=== PATIENT | female | born 1960 | race Caucasian/White ===

== ENCOUNTER 2016-07-24 19:04 | Emergency (ER) | payer BC ==
[~2016-07-24] VITALS: Ht 162.6 cm; Wt 61.5 kg
[2016-07-24] MEDS ORDERED: METOCLOPRAMIDE HCL 10 MG/2 ML VIAL IV PUSH ONE (19:15)
[2016-07-24] MEDS ORDERED: SODIUM CHLORIDE 0.9% FLUSH 10 ML FLUSH IVF PRN (19:15)
[2016-07-24] MEDS: SODIUM CHLOR 0.9% 1000 ML INJ 1,000 ML IV SCH ×2 (19:19→21:25)
[2016-07-24] MEDS ORDERED: MECLIZINE HCL 25 MG TAB PO ONE (19:30)
[2016-07-24] MEDS ORDERED: SODIUM CHLORID 0.9% 500 ML INJ 500 ML IV ONE ×2 (19:30→23:00)
[2016-07-24 19:35] VITALS: BP 94/49; PULSE 88; RESP 20; TEMP 98.5; O2SAT 97
[2016-07-24] MEDS ORDERED: LORazepam 2 MG/ML VIAL IV PUSH ONE (19:45)
[2016-07-24] MEDS ORDERED: SODIUM CHLOR 0.9% 1000 ML INJ 1,000 ML IV ONE (19:45)
[2016-07-24 20:04] LABS: AUTOMATED NEUTROPHIL # 3.9 TH/MM3 (1.8-7.7); BASOPHIL % 0.5 % (0.0-2.0); EOSINOPHIL % 0.7 % (0.0-4.0); HEMATOCRIT 38.4 % (35.0-46.0); HEMO FLAGS DIFF FINAL; LYMPH % 28.3 % (9.0-44.0); LYMPHOCYTE # 1.7 TH/MM3 (1.0-4.8); MEAN CELL VOLUME 91.2 FL (80.0-100.0); MEAN CORPUSCULAR HEMOGLOBIN 30.6 PG (27.0-34.0); MEAN CORPUSCULAR HGB CONC 33.5 % (32.0-36.0); MONO % 6.7 % (0.0-8.0); NEUT % 63.8 % (16.0-70.0); PLATELET COUNT 199 TH/MM3 (150-450); RED BLOOD COUNT 4.21 MIL/MM3 (4.00-5.30); RED CELL DISTRIBUTION WIDTH 12.6 % (11.6-17.2)
[2016-07-24 20:05] VITALS: BP 91/46; PULSE 75; RESP 18
--- NOTE | 2016-07-24 20:06 | RADHPO ---
EXAM DATE/TIME: 07/24/2016 19:49 [facility] COMPARISON: No previous studies available for comparison. INDICATIONS : Dizziness and weakness. MEDICAL HISTORY : None. SURGICAL HISTORY : None. ENCOUNTER: Initial ACUITY: 1 day PAIN SCORE: 0/10 LOCATION: Bilateral chest FINDINGS: A single view of the chest demonstrates the lungs to be symmetrically aerated without evidence of mas s, infiltrate or effusion. The cardiomediastinal contours are unremarkable. Osseous structures are intact. CONCLUSION: The lungs are clear. Donovan Joe MD on July 24, 2016 at 20:04 Board Certified Radiologist. This report was verified electronically.
--- NOTE | 2016-07-24 20:07 | PD ---
HPI Chief Complaint: GI Complaint Time Seen by Provider: 19:24 Travel History International Travel<30 days: No Contact w/Intl Traveler<30days: No Traveled to known affect area: No History of Present Illness HPI 56-year-old female presents to the emergency department from her residence by EMS transport for severe dizziness with nausea and vomiting. Patient states that she cannot lay back because of dizziness worsens. No prior history of episodes of dizziness or vertigo. Patient takes no medications on a daily basis has no chronic medical conditions was feeling well this afternoon awakened from a nap around 5:30 states she felt fine at that time all taking a shower and thereafter started developing some dizziness and thought that she was becoming overheated but as she tried to lay down in her bed her dizziness worsened and she had to sit up to prevent the dizziness from accelerating and developed vomiting. No loss of vision no double vision no headache no difficulty with speech no confusion no upper or lower extremity numbness tingling or weakness. states that her dizziness was too severe for him to bring her to the hospital so called 911 to transport her here. Patient did have an alcoholic beverage at lunch time but otherwise patient consumes same foods as her who feels well and no recent foreign travel or well water ingestion. Patient has received 2 doses of Zofran 4 mg each IV en route to the hospital as well as was noted to have normal blood sugar 113 reportedly she was normotensive. Patient reports that she has low blood pressure by history. No report of chest pain shortness of breath no neck jaw back shoulder arm pain and no abdominal pain. reports that only her dizziness and vomiting have been her symptoms no report of confusion facial droop unilateral weakness and patient denies the above as well as no weakness and no paresthesias. No seizure activity and no incontinence. No recent febrile illness. PFSH Past Medical History Narrative Medical negative pmh (chronic low blood pressure 90-100 mmHG), negative psh per patient and spouse; rare alcohol no tobacco; nursing notes reviewed Social History Tobacco Use: No Allergies-Medications (Allergen,Severity, Reaction): Coded Allergies: No Known Allergies (Unverified , 07/24/16) Reported Meds & Prescriptions Reported Meds & Active Scripts Active No Active Prescriptions or Reported Medications Narrative Medication none Review of Systems Except as stated in HPI: all other systems reviewed are Neg General / Constitutional: No: Fever Eyes: No: Diploplia, Blurred Vision, Photophobia HENT: Positive: Vertigo, Lightheadedness, No: Headaches Cardiovascular: No: Chest Pain or Discomfort Respiratory: No: Shortness of Breath Gastrointestinal: Positive: Nausea, Vomiting, No: Abdominal Pain Genitourinary: No: Flank Pain Musculoskeletal: No: Pain Skin: No Rash Neurologic: Positive: Dizziness, No: Weakness, Syncope, Focal Abnormalities, Coordination Problem, Headache, Change in Mentation, Slurred Speech, Paresthesia , Incontinence, Seizures Psychiatric: No: Anxiety Endocrine: No: Heat Intolerance Hematologic/Lymphatic: No: Easy Bruising Physical Exam Narrative GENERAL: Well-developed well-nourished female in no respiratory distress in obvious discomfort with active vomiting SKIN: Warm and dry. HEAD: Atraumatic. Normocephalic. EYES: Pupils equal and round. Extraocular muscles intact. No scleral icterus. No injection or drainage. ENT: No nasal bleeding or discharge. Mucous membranes pink and moist. NECK: Trachea midline. No JVD. Supple. CARDIOVASCULAR: Regular rate and rhythm. RESPIRATORY: No accessory muscle use. Clear to auscultation. Breath sounds equal bilaterally. GASTROINTESTINAL: Abdomen soft, non-tender, nondistended. Hepatic and splenic margins not palpable. MUSCULOSKELETAL: Extremities without clubbing, cyanosis, or edema. No obvious deformities. NEUROLOGICAL: Awake and alert. GCS 15. No obvious cranial nerve deficits, rightward nystagmus. Motor grossly within normal limits. Five out of 5 muscle strength in the arms and legs. No pronator drift. No limb ataxia. Sensory exam intact. DTRs 2+ and equal. Normal speech. PSYCHIATRIC: Appropriate mood and affect; insight and judgment normal. Data Data Last Documented VS Vital Signs Date Time Temp Pulse Resp B/P Pulse Ox O2 Delivery O2 Flow Rate FiO2 07/24/16 23:20 70 18 97/50 97 Room Air 07/24/16 19:35 98.5 Orders Electrocardiogram (07/24/16 19:12) Prothrombin Time / Inr (Pt) (07/24/16 19:12) Act Partial Throm Time (Ptt) (07/24/16 19:12) Complete Blood Count With Diff (07/24/16 19:12) Basic Metabolic Panel (Bmp) (07/24/16 19:12) Troponin I (07/24/16 19:12) Ct Brain W/O Iv Contrast(Rout) (07/24/16 19:12) Chest, Single Ap (07/24/16 19:12) Ecg Monitoring (07/24/16 19:12) Iv Access Insert/Monitor (07/24/16 19:12) Oximetry (07/24/16 19:12) Sodium Chloride 0.9% Flush (Ns Flush) (07/24/16 19:15) Metoclopramide Inj (Reglan Inj) (07/24/16 19:15) Sodium Chlor 0.9% 1000 Ml Inj (Ns 1000 M (07/24/16 19:15) Alcohol (Ethanol) (07/24/16 19:12) Magnesium (Mg) (07/24/16 19:12) Urinalysis - C+S If Indicated (07/24/16 19:13) Meclizine (Antivert) (07/24/16 19:30) Sodium Chlorid 0.9% 500 Ml Inj (Ns 500 M (07/24/16 19:30) Lorazepam Inj (Ativan Inj) (07/24/16 19:45) Sodium Chlor 0.9% 1000 Ml Inj (Ns 1000 M (07/24/16 19:45) Urine Culture (07/24/16 21:30) Sodium Chlorid 0.9% 500 Ml Inj (Ns 500 M (07/24/16 23:00) Nitrofurantoin Monohyd Macrocr (Macrobid (07/24/16 23:00) Labs Laboratory Tests Test 07/24/16 07/24/16 07/24/16 19:10 20:30 21:30 White Blood Count 6.0 TH/MM3 Red Blood Count 4.21 MIL/MM3 Hemoglobin 12.9 GM/DL Hematocrit 38.4 % Mean Corpuscular Volume 91.2 FL Mean Corpuscular Hemoglobin 30.6 PG Mean Corpuscular Hemoglobin 33.5 % Concent Red Cell Distribution Width 12.6 % Platelet Count 199 TH/MM3 Mean Platelet Volume 8.2 FL Neutrophils (%) (Auto) 63.8 % Lymphocytes (%) (Auto) 28.3 % Monocytes (%) (Auto) 6.7 % Eosinophils (%) (Auto) 0.7 % Basophils (%) (Auto) 0.5 % Neutrophils # (Auto) 3.9 TH/MM3 Lymphocytes # (Auto) 1.7 TH/MM3 Monocytes # (Auto) 0.4 TH/MM3 Eosinophils # (Auto) 0.0 TH/MM3 Basophils # (Auto) 0.0 TH/MM3 CBC Comment DIFF FINAL Differential Comment Sodium Level 144 MEQ/L Potassium Level 3.8 MEQ/L Chloride Level 110 MEQ/L Carbon Dioxide Level 23.6 MEQ/L Anion Gap 10 MEQ/L Blood Urea Nitrogen 19 MG/DL Creatinine 0.68 MG/DL Estimat Glomerular Filtration 89 ML/MIN Rate Random Glucose 113 MG/DL Calcium Level 8.4 MG/DL Magnesium Level 2.0 MG/DL Troponin I LESS THAN 0.02 NG/ML Ethyl Alcohol Level LESS THAN 3 MG/DL Prothrombin Time 11.4 SEC Prothromb Time International 1.0 RATIO Ratio Activated Partial 25.2 SEC Thromboplast Time Urine Collection Type CLEAN CATCH Urine Color YELLOW Urine Turbidity CLEAR Urine pH 8.0 Urine Specific [place] 1.019 Urine Protein TRACE mg/dL Urine Glucose (UA) NEG mg/dL Urine Ketones TRACE mg/dL Urine Occult Blood NEG Urine Nitrite NEG Urine Bilirubin NEG Urine Leukocyte Esterase TRACE Urine RBC 0-3 /hpf Urine WBC 9-14 /hpf Urine Squamous Epithelial 0-5 /hpf Cells Urine Amorphous Sediment SMALL Urine Mucus FEW /lpf Microscopic Urinalysis Comment CULTURE INDICATED MDM Medical Decision Making Medical Screen Exam Complete: Yes Emergency Medical Condition: Yes Medical Record Reviewed: Yes Interpretation(s) Vital Signs Date Time Temp Pulse Resp B/P Pulse Ox O2 Delivery O2 Flow Rate FiO2 07/24/16 21:50 72 18 104/52 97 Room Air 07/24/16 21:00 73 16 91/47 98 Room Air 07/24/16 20:05 75 18 91/46 Room Air 07/24/16 19:45 Room Air 07/24/16 19:35 98.5 88 20 94/49 97 EKG: Normal sinus rhythm rate [address] elevation or injury pattern change noted Last Impressions Head CT 07/24/161911 Signed Impressions: Service Date/Time: Sunday, July 24, 2016 19:56 - CONCLUSION: Negative noncontrast CT brain. Donovan Joe MD Chest X-Ray 07/24/161911 Signed Impressions: Service Date/Time: Sunday, July 24, 2016 19:49 - CONCLUSION: The lungs are clear. Donovan Joe MD CBC & BMP Diagram 07/24/16 19:10 Troponin I: Less than 0.02, not elevated Urinalysis positive for leukocyte esterase and white blood cells, culture indicated Serum alcohol: Less than 3, not elevated Differential Diagnosis Vertigo labyrinthitis ICH CVA TIA hypotension Narrative Course Patient placed on panel monitor IV access obtained by EMS patient with ongoing vomiting and dizziness unable to participate in exam Reglan 10 mg IV administered antivert 25 mg by mouth bolus of normal saline ordered patient with ongoing complaint of nausea dizziness dry heaving but able to rest back for physical exam but unwilling to participate for full exam has symmetric motor strength 5 over 5 normal sensory exam and DTRs pupils are equal round reactive to light rightward nystagmus no facial droop tongue midline cranial nerves otherwise grossly intact as tested airway patent. No pronator drift. No limb ataxia. Patient administered Ativan 0.5 mg iv NS bolus x 1 liter @ 8:15 CT resulted as no acute abnormality; patient in CT dizziness has resolved significantly no nausea, no vomiting after ativan At 11 PM patient continues to feel clinically improved denies any further nausea has had no vomiting and only reports mild dizziness upon standing without ataxia; neurologic exam is otherwise normal and GCS remains 15. Patient is identified to have mildly abnormal urinalysis culture is indicated patient given Macrodantin 100 mg by mouth. Patient tolerating oral hydration well. Patient is able to ambulate about exam room. Patient be discharged in the care of her spouse. Prescriptions provided. Diagnosis Primary Impression: Vertigo Additional Impression: UTI (urinary tract infection) Referrals: Orthopedist call for appointment Patient Instructions: General Instructions Med/Other Pt SpecificInfo: Prescription(s) given Scripts Nitrofurantoin Monohydrate Macrocrystals (Macrobid)100 Mg [id number] Mg PO BID #14 CAP Ref 0 Prov:Marisa Williamson MD 07/24/16 Meclizine 25 Mg Tab25 Mg PO Q6HR PRN (VERTIGO) #14 TAB Ref 0 Prov:Marisa Williamson MD 07/24/16 Ondansetron Odt (Zofran Odt)4 Mg Tab4 Mg SL Q6HR PRN (Nausea/Vomiting) #10 TAB Ref 0 Prov:Marisa Williamson MD 07/24/16 Promethazine (Phenergan)25 Mg Tab25 Mg PO Q6H PRN (Nausea/Vomiting) #10 TAB Ref 0 Prov:Marisa Williamson MD 07/24/16 Disposition: 01 DISCHARGE HOME Condition: Stable Marisa Williamson MD Jul 24, 2016 20:07
--- NOTE | 2016-07-24 20:11 | RADHPO ---
EXAM DATE/TIME: 07/24/2016 19:56 [facility] COMPARISON: No previous studies available for comparison. INDICATIONS : Dizziness with vomiting. RADIATION DOSE: 61.13 CTDIvol (mGy) MEDICAL HISTORY : None SURGICAL HISTORY : None. ENCOUNTER: Initial ACUITY: 1 day PAIN SCALE: 4/10 LOCATION: cranial TECHNIQUE: Multiple contiguous axial images were obtained of the head. Using automated exposure control and adj ustment of the mA and/or kV according to patient size, radiation dose was kept as low as reasonably a chievable to obtain optimal diagnostic quality images. FINDINGS: CEREBRUM: The ventricles are normal for age. No evidence of midline shift, mass lesion, hemorrhage or acute in farction. No extra-axial fluid collections are seen. POSTERIOR FOSSA: The cerebellum and brainstem are intact. The 4th ventricle is midline. The cerebellopontine angle i s unremarkable. EXTRACRANIAL: The visualized portion of the orbits is intact. SKULL: The calvaria is intact. No evidence of skull fracture. CONCLUSION: Negative noncontrast CT brain. Donovan Joe MD on July 24, 2016 at 20:09 Board Certified Radiologist. This report was verified electronically.
[2016-07-24 20:16] LABS: CHLORIDE 110 MEQ/L (98-107); POTASSIUM 3.8 MEQ/L (3.5-5.1); SODIUM (NA) 144 MEQ/L (136-145)
[2016-07-24 20:19] LABS: ANION GAP 10 MEQ/L (5-15); BICARBONATE 23.6 MEQ/L (21.0-32.0); BLOOD UREA NITROGEN 19 MG/DL (7-18)
[2016-07-24 20:22] LABS: GLOMERULAR FILTRATION RATE 89 ML/MIN (>89)
[2016-07-24 21:00] VITALS: BP 91/47; PULSE 73; RESP 16; O2SAT 98
[2016-07-24 21:02] LABS: APTT (PATIENT) 25.2 SEC (24.3-30.1); PROTHROMBIN TIME - PATIENT 11.4 SEC (9.8-11.6)
[2016-07-24 21:50] VITALS: BP 104/52; PULSE 72; RESP 18; O2SAT 97
[2016-07-24 21:51] LABS: BLOOD, URINE NEG (NEG); GLUCOSE,URINE NEG (NEG); KETONE, URINE TRACE mg/dL (NEG); NITRITE,URINE NEG (NEG)
[2016-07-24 22:09] LABS: METHOD OF COLLECTION CLEAN CATCH; URINE COLOR YELLOW (YELLW/STRAW)
[2016-07-24 22:10] LABS: COMMENT (UR) CULTURE INDICATED; CULTURE IF INDICATED CULTURE INDICATED; MUCUS URINE FEW /lpf (OCC); SQUAMOUS EPITHELIAL CELL URINE 0-5 /hpf (0-5)
[2016-07-24 22:11] LABS: RBC, URINE 0-3 /hpf (0-3)
[2016-07-24] MEDS ORDERED: NITROFURANTOIN MONOHYD MACROCR 100 MG CAP PO ONE (23:00)
[2016-07-24 23:20] VITALS: BP 97/50; PULSE 70; RESP 18; O2SAT 97
--- NOTE | 2016-07-24 23:37 | EKG ---
Date Performed: 07/24/2016 Time Performed: 20:39:16 PTAGE: 56 years EKG: Sinus rhythm . Poor R wave progression - probable normal variant Borderline ECG NO PREVIOUS TRACING DOCTOR: Jesu Anguiano Interpretating Date/Time 07/24/2016 23:37:08
[2016-07-24] MEDS ORDERED: MECL-62 PO (23:40)
[2016-07-24] MEDS ORDERED: MACR100C2 PO (23:40)
[2016-07-24] MEDS ORDERED: PROM25TA5 PO (23:40)
[2016-07-24] MEDS ORDERED: ZOFR4TAB3 SL (23:40)
[2016-07-25 00:04] VITALS: BP 97/53
== END 2016-07-25 00:23 | disposition home or self-care (01) ==
LOC: PHED 19:04
DX: R42 Dizziness and giddiness (principal); N39.0 Urinary tract infection, site not specified
CPT/HCPCS: 70450; 71010; 80048; 80307; 81001; 83735; 84484; 85025; 85610; 85730; 87086; 93005; 96361; 96374; 96375; 99285; J2060; J2765; J7030; J7040